=== PATIENT | male | born 1985 | race Caucasian/White ===

== ENCOUNTER 2017-02-15 14:19 | Emergency (ER) | payer OTHER ==
[2017-02-15 16:00] LABS: HEMATOCRIT 41.9 % (42.0-52.0); MEAN CORPUSCULAR HEMOGLOBIN 30.2 pg (27.0-33.0); MEAN CORPUSCULAR HGB CONC 35.8 g/dl (32.0-36.5); MEAN CORPUSCULAR VOLUME 84.3 fl (80.0-96.0); PLATELET COUNT, AUTOMATED 262 10^3/uL (150-450); RED BLOOD COUNT 4.97 10^6/uL (4.30-6.10); RED CELL DISTRIBUTION WIDTH 11.9 % (11.5-14.5); WHITE BLOOD COUNT 8.4 10^3/uL (4.0-10.0)
[2017-02-15 16:32] LABS: AMPHETAMINES LEVEL URINE NEGATIVE (NEGATIVE); BARBITURATES URINE NEGATIVE (NEGATIVE); BENZODIAZEPINES URINE NEGATIVE (NEGATIVE); CANNABINOIDS URINE NEGATIVE (NEGATIVE); COCAINE METABOLITE URINE NEGATIVE (NEGATIVE); METHADONE URINE NEGATIVE (NEGATIVE); OPIATES URINE NEGATIVE (NEGATIVE); PHENCYCLIDINE URINE NEGATIVE (NEGATIVE)
[2017-02-15 16:44] LABS: ACETAMINOPHEN LEVEL < 2.0 UG/ML (10.0-30.0); ALBUMIN 4.7 GM/DL (3.2-5.2); ALBUMIN/GLOBULIN RATIO 1.38 (1.00-1.93); ALKALINE PHOSPHATASE 83 U/L (45-117); ALT/SGPT 25 U/L (12-78); ANION GAP 6 MEQ/L (8-16); AST/SGOT 11 U/L (7-37); BILIRUBIN,DIRECT < 0.1 MG/DL (0.0-0.2); BILIRUBIN,TOTAL 0.3 MG/DL (0.2-1.0); BLOOD UREA NITROGEN 23 MG/DL (7-18); CALCIUM LEVEL 8.9 MG/DL (8.5-10.1); CARBON DIOXIDE LEVEL 27 MEQ/L (21-32); CHLORIDE LEVEL 109 MEQ/L (98-107); CREATININE FOR GFR 0.87 MG/DL (0.70-1.30); ETHYL ALCOHOL (ETHANOL) < 0.003 % (0.000-0.010); GLOMERULAR FILTRATION RATE > 60.0 (>60); GLUCOSE, FASTING 102 MG/DL (70-105); SALICYLATE LEVEL < 1.7 MG/DL (5.0-30.0); SODIUM LEVEL 142 MEQ/L (136-145); TOTAL PROTEIN 8.1 GM/DL (6.4-8.2)
[2017-02-15 19:24] LABS: PROLACTIN 7.9 NG/ML (2.1-17.7)
== END 2017-02-15 19:41 | disposition home or self-care (01) ==
LOC: M ED 14:19
DX: F44.9 Dissociative and conversion disorder, unspecified (principal)
CPT/HCPCS: G0480

== ENCOUNTER 2022-08-02 17:56 | Emergency (ER) | payer OTHER ==
[~2022-08-02] VITALS: Ht 172.7 cm; Wt 85.6 kg
[2022-08-02 18:18] VITALS: TEMP 97.5
[2022-08-02 22:41] VITALS: BP 141/92; O2SAT 99
== END 2022-08-02 22:43 | disposition home or self-care (01) ==
LOC: EDBD 17:56 → M ED 17:56
DX: M54.2 Cervicalgia (principal); R10.9 Unspecified abdominal pain; M25.562 Pain in left knee; F17.200 Nicotine dependence, unspecified, uncomplicated; V49.00XA Driver injured in collision with unspecified motor vehicles in nontraffic accident, initial encounter

== ENCOUNTER 2024-09-20 15:38 | Emergency (ER) | payer OTHER ==
[~2024-09-20] VITALS: Ht 172.7 cm; Wt 81.8 kg
[2024-09-20] MEDS ORDERED: NAPR-1405 PO (15:54)
[2024-09-20 18:09] VITALS: BP 141/79; TEMP 98.1; O2SAT 98
[2024-09-20] MEDS ORDERED: IBUP-1022 PO (19:04)
[2024-09-20] MEDS: IBUPROFEN 800 MG TAB PO ONE (19:13)
[2024-09-20] MEDS: NORCO 5/325MG TABLET (HOME DOSE PACK) PO ONE (19:28)
== END 2024-09-20 19:30 | disposition home or self-care (01) ==
LOC: M ED 15:38
DX: S82.61XA Displaced fracture of lateral malleolus of right fibula, initial encounter for closed fracture (principal); X50.0XXA Overexertion from strenuous movement or load, initial encounter; Y92.89 Other specified places as the place of occurrence of the external cause; Y93 Activity codes; Y99.1 Military activity; Z79.1 Long term (current) use of non-steroidal anti-inflammatories (NSAID)

== ENCOUNTER → 2025-01-08 | Outpatient (CLI) | payer OTHER ==
[~2025-01-08] MED LIST: IBUP600T42 PO; NAPR-1405 PO
== END ==
LOC: M PLAIMG 13:30
PROVIDERS: ATTEND Orthopaedic Surgery
DX: S82.91XD Unspecified fracture of right lower leg, subsequent encounter for closed fracture with routine healing (principal)